=== PATIENT | male | born 1975 | race Two or more races ===

== ENCOUNTER 2020-10-31 10:17 | Inpatient (IN) | payer BC ==
[~2020-10-31] VITALS: Ht 172.7 cm; Wt 113.0 kg
[2020-10-31] MEDS ORDERED: SODIUM CHLORIDE 0.9% 500 ML IVB ONE (10:45)
[2020-10-31] MEDS ORDERED: ONDANSETRON HCL 4 MG/2 ML VIAL IV ONE ×2 (10:45→17:45)
[2020-10-31] MEDS ORDERED: MORPHINE SULFATE 4 MG/ML SYR/VIAL IV ONE ×2 (10:45→16:45)
[2020-10-31] MEDS ORDERED: IOHEXOL 300 MG/ML 100ML BOTTLE IJ ONE ×2 (10:52→18:32)
[2020-10-31 11:07] LABS: Basophils # (auto) 0 10 ^3/uL (0-0.2); Eosinophils # (auto) 0.1 10 ^3/uL (0-0.8); Red Blood Cells 5.99 10^6/uL (4.5-5.90); Red Cell Distribution Width 13.7 % (11.8-14.3)
[2020-10-31 11:10] LABS: Basophils % (auto) 0.2 % (0.0-2.0); Eosinophils % (auto) 0.7 % (0.0-7.0); Hematocrit 52.4 % (41.0-53.0); Mean Corpuscular Hgb Conc. 34.3 g/dL (32.0-36.0); Mean Corpuscular Volume 87.5 fL (80.0-100.0); Monocytes # (auto) 1.3 10 ^3/uL (0-1.3); Monocytes % (auto) 8.6 % (0.0-12.0); Neutrophils % (auto) 77.5 % (37.0-80.0); White Blood Cell 15.5 10^3/uL (4.4-10.8)
[2020-10-31 11:14] LABS: Urine Bacteria NONE SEEN /hpf (None Seen); Urine Blood Negative /uL (Negative); Urine Specific Gravity 1.022 (1.001-1.035); Urine WBC 2 /hpf (0 - 3)
[2020-10-31 11:22] LABS: Albumin 4.4 g/dL (3.4-5.0); Calcium 11.5 mg/dL (8.5-10.1); Potassium 4.1 mmol/L (3.5-5.1)
[2020-10-31 11:26] LABS: BUN/Creatinine Ratio 20.2; Bilirubin, Total 1.3 mg/dL (0.2-1.0); Total Protein 9.4 g/dL (6.4-8.2)
[2020-10-31] MEDS ORDERED: SODIUM CHLORIDE 0.9% 1,000 ML IV ONE (16:45)
[2020-10-31] MEDS ORDERED: OMNIPAQUE ORAL SOLN 500ml 12mg/ml PO ONE (17:35)
[2020-10-31] MEDS ORDERED: ALBUTEROL SULF 2.5 MG/0.5ML(0.5%) NEB SOLN NEB PRN (18:30)
[2020-10-31] MEDS ORDERED: hydrALAZINE HCL 20 MG/ML VL IV PRN (18:30)
[2020-10-31] MEDS ORDERED: ONDANSETRON HCL 4 MG/2 ML VIAL IV PRN (18:30)
[2020-10-31] MEDS ORDERED: PANTOPRAZOLE 40 MG/10 ML VIAL INJ IV SCH (18:38)
[2020-10-31] MEDS ORDERED: FOLIC ACID 1 MG, MULTIPLE VITAMIN 10 ML, MAGNESIUM SULF SDV 50% 8 MEQ, THIAMINE INJ 100... INJ SCH ×5 (18:39)
[2020-10-31 19:19] VITALS: BP 168/94
[2020-11-01] MEDS ORDERED: cefTRIAXone 1GM/50ML D5W 50 ML IV ONE (00:45)
[2020-11-01] MEDS ORDERED: metroNIDAZOLE 500MG/100ML 100 ML IV ONE (00:45)
[2020-11-01] MEDS ORDERED: NITROGLYCERIN 0.4 MG SL TAB SL PRN ×2 (00:45→01:00)
[2020-11-01] MEDS ORDERED: MORPHINE SULFATE INJECTION 2 MG/2 ML SYRG IV PRN ×2 (00:45→01:00)
[2020-11-01] MEDS ORDERED: LORazepam 0.5 MG TAB PO PRN (01:00)
[2020-11-01] MEDS ORDERED: ACETAMINOPHEN 325 MG TAB PO PRN (01:00)
[2020-11-01] MEDS ORDERED: HYDROcodone-ACET 5/325MG TAB PO PRN (01:00)
[2020-11-01] MEDS ORDERED: MORPHINE SULFATE INJECTION 2 MG/2 ML SYRG IV ONE (01:00)
[2020-11-01] MEDS ORDERED: D5W/SOD CHLO 0.9% 1,000 ML IV SCH (01:00)
[2020-11-01] MEDS ORDERED: ONDANSETRON HCL 4 MG/2 ML VIAL IV PRN (01:00)
[2020-11-01] MEDS ORDERED: SODIUM CHLORIDE 0.9% 1,000 ML IV ONE (01:00)
[2020-11-01] MEDS ORDERED: DOCUSATE SOD 100 MG CAP PO PRN (01:00)
[2020-11-01] MEDS ORDERED: ALUM & MAG HYDROX-SIMETH LIQ(MAALOX) 30 ML PO PRN (01:00)
[2020-11-01] MEDS ORDERED: amLODIPine BESYLATE 5 MG TAB PO ONE (01:15)
[2020-11-01] MEDS ORDERED: ASPirin 81 mg TAB PO ONE (01:15)
[2020-11-01] MEDS ORDERED: LISINOPRIL 10 MG TAB PO ONE (01:15)
[2020-11-01] MEDS ORDERED: LORazepam 2MG/ML-1ML VIAL IV PRN (01:15)
[2020-11-01] MEDS ORDERED: CALCITONIN 400unit/2ml Vial (200unit/ml) SC ONE (01:15)
[2020-11-01] MEDS ORDERED: MULTIPLE VITAMINS W/ MINERALS TAB PO ONE (01:15)
[2020-11-01] MEDS ORDERED: hydrALAZINE HCL 20 MG/ML VL IV PRN (01:15)
[2020-11-01] MEDS ORDERED: FOLIC ACID 1 MG TAB PO ONE (01:15)
[2020-11-01] MEDS ORDERED: THIAMINE 100mg/ml INJ (200mg/2ml VIAL) IV ONE (01:15)
[2020-11-01 02:48] LABS: INR 1.09 (0.9-1.15); Partial Thromboplastin Time 23.9 sec (23.6-33.0)
[2020-11-01 02:50] LABS: Cholesterol 153 mg/dL (< 200)
[2020-11-01 02:54] LABS: Calcium 9.7 mg/dL (8.5-10.1); HDL Cholesterol 40 mg/dL (40-59); LDL Cholesterol 92 mg/dL (< 100); Magnesium 2.1 mg/dL (1.6-2.6); Phosphorus 4.2 mg/dL (2.5-4.90); Triglycerides 98 mg/dL (< 150); Uric Acid 8.9 mg/dL (3.5-7.2)
[2020-11-01] MEDS: D5W/SOD CHLO 0.9% 1,000 ML IV SCH ×4 (03:59→22:03)
[2020-11-01] MEDS: MORPHINE SULFATE INJECTION 2 MG/2 ML SYRG IV PRN ×4 (05:21→22:04)
[2020-11-01] MEDS ORDERED: metroNIDAZOLE 500MG/100ML 100 ML IV SCH (06:00)
[2020-11-01] MEDS ORDERED: GASTROGRAFIN 120 ML SOL ONE (08:57)
[2020-11-01 09:00] VITALS: BP 126/77
[2020-11-01] MEDS: THIAMINE HCL 100 MG TAB PO SCH (10:00)
[2020-11-01] MEDS: MULTIPLE VITAMINS W/ MINERALS TAB PO SCH (10:00)
[2020-11-01] MEDS: amLODIPine BESYLATE 5 MG TAB PO SCH (10:00)
[2020-11-01] MEDS: LISINOPRIL 10 MG TAB PO SCH (10:00)
[2020-11-01] MEDS: FOLIC ACID 1 MG TAB PO SCH (10:00)
[2020-11-01] MEDS: PANTOPRAZOLE 40 MG/10 ML VIAL INJ IV SCH (10:00)
[2020-11-01] MEDS: ASPirin 81 mg TAB PO SCH (10:00)
[2020-11-01 10:12] LABS: Basophils # (auto) 0 10 ^3/uL (0-0.2); Basophils % (auto) 0.2 % (0.0-2.0); Eosinophils # (auto) 0.1 10 ^3/uL (0-0.8); Eosinophils % (auto) 1.3 % (0.0-7.0); Hemoglobin 14.6 g/dL (13.5-17.5); Lymphocytes # (auto) 1.6 10 ^3/uL (0.4-5.4); Lymphocytes % (auto) 14.3 % (10.0-50.0); Mean Corpuscular Hemoglobin 31.2 pg (28.0-32.0); Mean Corpuscular Hgb Conc. 35.7 g/dL (32.0-36.0); Mean Corpuscular Volume 87.5 fL (80.0-100.0); Monocytes # (auto) 1.3 10 ^3/uL (0-1.3); Monocytes % (auto) 11.8 % (0.0-12.0); Neutrophils # (auto) 7.9 10 ^3/uL (1.6-8.6); Neutrophils % (auto) 72.4 % (37.0-80.0); Red Blood Cells 4.68 10^6/uL (4.5-5.90); Red Cell Distribution Width 13.3 % (11.8-14.3); White Blood Cell 10.9 10^3/uL (4.4-10.8)
[2020-11-01 10:16] LABS: BUN/Creatinine Ratio 21.5; Potassium 3.1 mmol/L (3.5-5.1)
[2020-11-01 10:17] LABS: Albumin 3.4 g/dL (3.4-5.0); Calcium 8.6 mg/dL (8.5-10.1)
[2020-11-01 10:25] LABS: Bilirubin, Total 0.8 mg/dL (0.2-1.0)
[2020-11-01] MEDS: POTASSIUM CHL 20MEQ/100ML 100 ML IV SCH ×2 (11:40→14:00)
[2020-11-01 13:07] LABS: Hepatitis A Ab IgM Negative; Hepatitis B Core IgM Negative; Hepatitis B Surface Antigen Negative (Negative)
[2020-11-01 13:08] LABS: Hepatitis C Antibody Negative (Negative)
[2020-11-01] MEDS: metroNIDAZOLE 500MG/100ML 100 ML IV SCH ×2 (14:00→23:42)
[2020-11-01] MEDS ORDERED: AMLO-489 PO (16:00)
[2020-11-01] MEDS ORDERED: LISI-716 PO (16:01)
[2020-11-01] MEDS ORDERED: LISI20TA28 PO (16:01)
[2020-11-01] MEDS ORDERED: ALBU2TAB4 PO (16:01)
[2020-11-01] MEDS ORDERED: FLUT110A INH (16:01)
[2020-11-01 22:00] VITALS: BP 149/77
[2020-11-01] MEDS: ATORVASTATIN 20 MG TAB PO SCH ×2 (22:00→22:04)
[2020-11-01] MEDS: cefTRIAXone 1GM/50ML D5W 50 ML IV SCH (22:03)
[2020-11-02] MEDS: D5W/SOD CHLO 0.9% 1,000 ML IV SCH ×3 (03:56→17:15)
[2020-11-02] MEDS: MORPHINE SULFATE INJECTION 2 MG/2 ML SYRG IV PRN (04:38)
[2020-11-02 05:00] VITALS: BP 157/81
[2020-11-02] MEDS: metroNIDAZOLE 500MG/100ML 100 ML IV SCH ×3 (05:33→22:42)
[2020-11-02 05:36] LABS: Basophils # (auto) 0 10 ^3/uL (0-0.2); Basophils % (auto) 0.3 % (0.0-2.0); Eosinophils # (auto) 0.4 10 ^3/uL (0-0.8); Eosinophils % (auto) 3.3 % (0.0-7.0); Hematocrit 44.6 % (41.0-53.0); Hemoglobin 15.7 g/dL (13.5-17.5); Lymphocytes # (auto) 2.1 10 ^3/uL (0.4-5.4); Lymphocytes % (auto) 19.9 % (10.0-50.0); Mean Corpuscular Hemoglobin 30.8 pg (28.0-32.0); Mean Corpuscular Hgb Conc. 35.1 g/dL (32.0-36.0); Mean Corpuscular Volume 87.6 fL (80.0-100.0); Monocytes # (auto) 1.2 10 ^3/uL (0-1.3); Neutrophils % (auto) 65.5 % (37.0-80.0); Red Blood Cells 5.09 10^6/uL (4.5-5.90); Red Cell Distribution Width 13.7 % (11.8-14.3); White Blood Cell 10.7 10^3/uL (4.4-10.8)
[2020-11-02 06:00] LABS: Calcium 8.9 mg/dL (8.5-10.1); Potassium 3.4 mmol/L (3.5-5.1)
[2020-11-02 06:02] LABS: BUN/Creatinine Ratio 13.8
[2020-11-02 08:39] VITALS: BP 156/93
[2020-11-02] MEDS: PANTOPRAZOLE 40 MG/10 ML VIAL INJ IV SCH (09:51)
[2020-11-02] MEDS: ASPirin 81 mg TAB PO SCH (09:51)
[2020-11-02] MEDS: THIAMINE HCL 100 MG TAB PO SCH (09:51)
[2020-11-02] MEDS: FOLIC ACID 1 MG TAB PO SCH (09:51)
[2020-11-02] MEDS: LISINOPRIL 10 MG TAB PO SCH (09:52)
[2020-11-02] MEDS: amLODIPine BESYLATE 5 MG TAB PO SCH (09:52)
[2020-11-02] MEDS: MULTIPLE VITAMINS W/ MINERALS TAB PO SCH (09:52)
[2020-11-02 13:22] VITALS: BP 139/72
[2020-11-02 16:57] VITALS: BP 146/71
[2020-11-02] MEDS: ATORVASTATIN 20 MG TAB PO SCH (21:45)
[2020-11-02] MEDS: cefTRIAXone 1GM/50ML D5W 50 ML IV SCH (21:45)
[2020-11-02 22:00] VITALS: BP 147/96
[2020-11-03] MEDS: D5W/SOD CHLO 0.9% 1,000 ML IV SCH ×3 (01:16→13:15)
[2020-11-03 05:00] VITALS: BP 151/84
[2020-11-03] MEDS: metroNIDAZOLE 500MG/100ML 100 ML IV SCH ×2 (06:15→14:00)
[2020-11-03 06:40] LABS: Basophils # (auto) 0 10 ^3/uL (0-0.2); Basophils % (auto) 0.4 % (0.0-2.0); Eosinophils # (auto) 0.4 10 ^3/uL (0-0.8); Eosinophils % (auto) 2.9 % (0.0-7.0); Hematocrit 45.6 % (41.0-53.0); Lymphocytes # (auto) 2.6 10 ^3/uL (0.4-5.4); Lymphocytes % (auto) 21.1 % (10.0-50.0); Mean Corpuscular Hemoglobin 30.7 pg (28.0-32.0); Mean Corpuscular Volume 87.6 fL (80.0-100.0); Monocytes # (auto) 1.2 10 ^3/uL (0-1.3); Monocytes % (auto) 9.8 % (0.0-12.0); Neutrophils # (auto) 8.1 10 ^3/uL (1.6-8.6); Neutrophils % (auto) 65.8 % (37.0-80.0); Nucleated Red Blood Cells % 0.1 %; Red Cell Distribution Width 13.2 % (11.8-14.3); White Blood Cell 12.3 10^3/uL (4.4-10.8)
[2020-11-03 06:55] LABS: Calcium 8.8 mg/dL (8.5-10.1); Potassium 3.4 mmol/L (3.5-5.1)
[2020-11-03 06:57] LABS: BUN/Creatinine Ratio 13.8
[2020-11-03 09:00] VITALS: BP 153/96
[2020-11-03] MEDS: PANTOPRAZOLE 40 MG/10 ML VIAL INJ IV SCH (09:07)
[2020-11-03] MEDS: LISINOPRIL 10 MG TAB PO SCH (09:09)
[2020-11-03] MEDS: MULTIPLE VITAMINS W/ MINERALS TAB PO SCH (09:09)
[2020-11-03] MEDS: THIAMINE HCL 100 MG TAB PO SCH (09:10)
[2020-11-03] MEDS: ASPirin 81 mg TAB PO SCH (09:10)
[2020-11-03] MEDS: FOLIC ACID 1 MG TAB PO SCH (09:10)
[2020-11-03] MEDS: amLODIPine BESYLATE 5 MG TAB PO SCH (09:11)
[2020-11-03 13:00] VITALS: BP 153/91
[2020-11-03] MEDS ORDERED: LEVO500T31 PO (14:08)
[2020-11-03] MEDS ORDERED: METR500T PO (14:08)
[2020-11-03 16:11] VITALS: BP 153/96
[2020-11-03 17:00] VITALS: BP 146/92
== END 2020-11-03 16:50 | disposition home or self-care (01) | DRG 389 ==
LOC: ER 10:17 → TELE 11-01 00:32 → TELE-CENTR 11-01 08:41
PROVIDERS: ADMIT Hospitalist; ATTEND Internal Medicine
PROC: 0D9670Z Drainage of Stomach with Drainage Device, Via Natural or Artificial Opening (ICD-10-PCS; principal; 2020-11-02)
DX: K56.601 Complete intestinal obstruction, unspecified as to cause (principal); N17.9 Acute kidney failure, unspecified; K43.0 Incisional hernia with obstruction, without gangrene; Z20.822 Contact with and (suspected) exposure to COVID-19; E66.01 Morbid (severe) obesity due to excess calories; E78.5 Hyperlipidemia, unspecified; E83.52 Hypercalcemia; F10.10 Alcohol abuse, uncomplicated; G89.29 Other chronic pain; R79.89 Other specified abnormal findings of blood chemistry; I10 Essential (primary) hypertension; J45.909 Unspecified asthma, uncomplicated; K44.9 Diaphragmatic hernia without obstruction or gangrene; K52.9 Noninfective gastroenteritis and colitis, unspecified; K70.10 Alcoholic hepatitis without ascites; K76.0 Fatty (change of) liver, not elsewhere classified; K80.20 Calculus of gallbladder without cholecystitis without obstruction; M10.9 Gout, unspecified; Z79.899 Other long term (current) drug therapy; Z68.39 Body mass index [BMI] 39.0-39.9, adult; Z91.010 Allergy to peanuts; Y90.9 Presence of alcohol in blood, level not specified
CPT/HCPCS: 36415; 74018; 74176; 74177; 74250; 76705; 80048; 80053; 80061; 80074; 81001; 82150; 82306; 82310; 83036; 83605; 83690; 83735; 83970; 84100; 84443; 84484; 84550; 85025; 85610; 85730; 87040; 87426; 96361; 96365; 96367; 96368; 96375; 96376; C9113; G0378; J0696; J2405; J3480; J3490; J7042